=== PATIENT | male | born 1960 | race Caucasian/White ===

== ENCOUNTER → 2016-12-31 | Outpatient (CLI) | payer BC ==
[2016-12-31 07:22] LABS: CH 30.4; CHCM 34.1; HCT 49.1 % (39.0-53.0); HDW 2.55; HGB 16.2 gm/dL (13.0-17.5); MCH 29.6 pg (25.0-35.0); MCV 89.5 fL (80.0-100.0); Mean Platelet Volume 6.6; RBC 5.49 m/uL (4.30-5.90); RDW 13.1 % (11.5-15.5); WBC 6.1 k/uL (3.8-10.6)
[2016-12-31 07:27] LABS: INR 2.7 (<1.1); Prothrombin Time 25.9 sec (9.0-12.0)
[2016-12-31 07:35] LABS: Anion Gap 10 mmol/L; Blood Urea Nitrogen 20 mg/dL (9-20); Carbon Dioxide 30 mmol/L (22-30); Chloride 103 mmol/L (98-107); Glucose 107 mg/dL (74-99); Non-African American GFR(MDRD) >60 (>60 ml/min/1.73 sqM); Potassium 4.2 mmol/L (3.5-5.1); Sodium 143 mmol/L (137-145)
== END ==
LOC: LABWHC1 06:56
PROVIDERS: ATTEND Internal Medicine
DX: I48.0 Paroxysmal atrial fibrillation (principal)
CPT/HCPCS: 36415; 80048; 85027; 85610

== ENCOUNTER 2017-01-06 11:13 | Emergency (ER) | payer BC ==
[2017-01-06] MEDS ORDERED: SODIUM CHLORIDE 0.9% 1,000 ML IV STA (11:32)
--- NOTE | 2017-01-06 12:03 | ED ---
General Adult HPI - General Chief complaint: Neuro Symptoms/Deficit Stated complaint: left arm numb Time Seen by Provider: 01/06/17 11:24 Source: patient, RN notes reviewed, old records reviewed Mode of arrival: wheelchair Limitations: no limitations - History of Present Illness Initial comments: This is a 56-year-old male here for evaluation. The patient was here for evaluation of neurological symptoms. Patient has recent ablation history of A. fib, still on Coumadin. Patient still taking Coumadin as directed. Patient had Cardiac ablation within the last week. Told to ER symptoms of dizziness persists. Patient having left arm numbness and tingling which has resolved, but still having mild numbness and tingling in leftbody and leg. No trauma. - Related Data Home Medications Medication Instructions Recorded Confirmed Krill Oil 500 mg PO HS 01/06/17 01/06/17 Multivitamins, Thera [Multivitamin 1 tab PO HS 01/06/17 01/06/17 (formulary)] Omeprazole [PriLOSEC] 20 mg PO BID 01/06/17 01/06/17 Warfarin Sodium [Coumadin] 5 mg PO SUTUTH 01/06/17 01/06/17 Warfarin Sodium [Coumadin] 7.5 mg PO MOWEFRSA 01/06/17 01/06/17 Allergies Allergy/AdvReac Type Severity Reaction Status Date / Time No Known Allergies Allergy Verified 01/06/17 12:40 Review of Systems ROS Statement: Those systems with pertinent positive or pertinent negative responses have been documented in the HPI. ROS Other: All systems not noted in ROS Statement are negative. Past Medical History Past Medical History: Atrial Fibrillation, Atrial Flutter, Hyperlipidemia, Hypertension History of Any Multi-Drug Resistant Organisms: None Reported Past Surgical History: Cardiac Ablation Additional Past Surgical History / Comment(s): vasectomy Past Psychological History: No Psychological Hx Reported Smoking Status: Never smoker Past Alcohol Use History: None Reported Past Drug Use History: None Reported General Exam - General Exam Comments Initial Comments: NIH of 0 Limitations: no limitations General appearance: alert, in no apparent distress Head exam: Present: atraumatic, normocephalic, normal inspection Eye exam: Present: normal appearance, PERRL, EOMI. Absent: scleral icterus, conjunctival injection, periorbital swelling ENT exam: Present: normal exam, mucous membranes moist Neck exam: Present: normal inspection. Absent: tenderness, meningismus, lymphadenopathy Respiratory exam: Present: normal lung sounds bilaterally. Absent: respiratory distress, wheezes, rales, rhonchi, stridor Cardiovascular Exam: Present: regular rate, normal rhythm, normal heart sounds. Absent: systolic murmur, diastolic murmur, rubs, gallop, clicks GI/Abdominal exam: Present: soft, normal bowel sounds. Absent: distended, tenderness, guarding, rebound, rigid Extremities exam: Present: normal inspection, full ROM, normal capillary refill. Absent: tenderness, pedal edema, joint swelling, calf tenderness Back exam: Present: normal inspection Neurological exam: Present: alert, oriented X3, CN II-XII intact Psychiatric exam: Present: normal affect, normal mood Skin exam: Present: warm, dry, intact, normal color. 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 Symptoms of numbness and paresthesias and arm have went away, patient does have some tingling in his left knee and left side of his face, states maybe mildly anxious. No high blood pressure and questionable diabetes, does have history of A. fib with recent ablation, patient's subtherapeutic INR. Spoke with patient's ablation, cardiac surgery and patient will be discharged home - Lab Data Result diagrams: 01/06/17 12:00 01/06/17 12:00 Lab Results 01/06/17 01/06/17 01/06/17 Range/Units 12:00 12:00 12:00 WBC 7.8 (3.8-10.6) k/uL RBC 4.81 (4.30-5.90) m/uL Hgb 14.5 (13.0-17.5) gm/dL Hct 42.1 (39.0-53.0) % MCV 87.5 (80.0-100.0) fL MCH 30.0 (25.0-35.0) pg MCHC 34.3 (31.0-37.0) g/dL RDW 12.8 (11.5-15.5) % Plt Count 212 (150-450) k/uL Neutrophils % 75 % Lymphocytes % 14 % Monocytes % 7 % Eosinophils % 1 % Basophils % 0 % Neutrophils # 5.9 (1.3-7.7) k/uL Lymphocytes # 1.1 (1.0-4.8) k/uL Monocytes # 0.6 (0-1.0) k/uL Eosinophils # 0.1 (0-0.7) k/uL Basophils # 0.0 (0-0.2) k/uL PT (9.0-12.0) sec INR (<1.1) APTT (22.0-30.0) sec Sodium 139 (137-145) mmol/L Potassium 4.1 (3.5-5.1) mmol/L Chloride 100 (98-107) mmol/L Carbon Dioxide 30 (22-30) mmol/L Anion Gap 9 mmol/L BUN 20 (9-20) mg/dL Creatinine 0.85 (0.66-1.25) mg/dL Est GFR (MDRD) Af Amer >60 (>60 ml/min/1.73 sqM) Est GFR (MDRD) Non-Af >60 (>60 ml/min/1.73 sqM) Glucose 145 H (74-99) mg/dL Calcium 9.3 (8.4-10.2) mg/dL Total Bilirubin 1.1 (0.2-1.3) mg/dL AST 64 H (17-59) U/L ALT 101 H (21-72) U/L Alkaline Phosphatase 90 (38-126) U/L Total Creatine Kinase 168 (55-170) U/L CK-MB (CK-2) 0.8 (0.0-2.4) ng/mL CK-MB (CK-2) Rel Index 0.5 Troponin I 0.244 H* (0.000-0.034) ng/mL Total Protein 7.6 (6.3-8.2) g/dL Albumin 4.2 (3.5-5.0) g/dL 01/06/17 Range/Units 12:00 WBC (3.8-10.6) k/uL RBC (4.30-5.90) m/uL Hgb (13.0-17.5) gm/dL Hct (39.0-53.0) % MCV (80.0-100.0) fL MCH (25.0-35.0) pg MCHC (31.0-37.0) g/dL RDW (11.5-15.5) % Plt Count (150-450) k/uL Neutrophils % % Lymphocytes % % Monocytes % % Eosinophils % % Basophils % % Neutrophils # (1.3-7.7) k/uL Lymphocytes # (1.0-4.8) k/uL Monocytes # (0-1.0) k/uL Eosinophils # (0-0.7) k/uL Basophils # (0-0.2) k/uL PT 12.6 H (9.0-12.0) sec INR 1.3 (<1.1) APTT 24.1 (22.0-30.0) sec Sodium (137-145) mmol/L Potassium (3.5-5.1) mmol/L Chloride (98-107) mmol/L Carbon Dioxide (22-30) mmol/L Anion Gap mmol/L BUN (9-20) mg/dL Creatinine (0.66-1.25) mg/dL Est GFR (MDRD) Af Amer (>60 ml/min/1.73 sqM) Est GFR (MDRD) Non-Af (>60 ml/min/1.73 sqM) Glucose (74-99) mg/dL Calcium (8.4-10.2) mg/dL Total Bilirubin (0.2-1.3) mg/dL AST (17-59) U/L ALT (21-72) U/L Alkaline Phosphatase (38-126) U/L Total Creatine Kinase (55-170) U/L CK-MB (CK-2) (0.0-2.4) ng/mL CK-MB (CK-2) Rel Index Troponin I (0.000-0.034) ng/mL Total Protein (6.3-8.2) g/dL Albumin (3.5-5.0) g/dL - Radiology Data Radiology results: report reviewed (CT brain is negative for acute disease), image reviewed Disposition Clinical Impression: Arm paresthesia, right, Subtherapeutic anticoagulation Disposition: HOME SELF-CARE Condition: Good Referrals: Gelacio Chung Jr, [Primary Care Provider] - 1-2 days
[2017-01-06 12:14] LABS: Basophils % (A) 0 %; CH 30.3; CHCM 34.8; Eosinophils # (A) 0.1 k/uL (0-0.7); Eosinophils % (A) 1 %; HCT 42.1 % (39.0-53.0); HDW 2.53; HGB 14.5 gm/dL (13.0-17.5); Luc # (Auto) 0.16; Luc % (Auto) 2; Lymphocytes # (A) 1.1 k/uL (1.0-4.8); Lymphocytes % (A) 14 %; MCHC 34.3 g/dL (31.0-37.0); MCV 87.5 fL (80.0-100.0); Mean Platelet Volume 6.5; Monocytes # (A) 0.6 k/uL (0-1.0); Monocytes % (A) 7 %; Neutrophils # (A) 5.9 k/uL (1.3-7.7); Neutrophils % (A) 75 %; RBC 4.81 m/uL (4.30-5.90); RDW 12.8 % (11.5-15.5); WBC 7.8 k/uL (3.8-10.6); WBC (Perox) 7.87
[2017-01-06 12:25] LABS: ALT 101 U/L (21-72); AST 64 U/L (17-59); Alkaline Phosphatase 90 U/L (38-126); Anion Gap 9 mmol/L; Blood Urea Nitrogen 20 mg/dL (9-20); Calcium 9.3 mg/dL (8.4-10.2); Carbon Dioxide 30 mmol/L (22-30); Chloride 100 mmol/L (98-107); Glucose 145 mg/dL (74-99); INR 1.3 (<1.1); Non-African American GFR(MDRD) >60 (>60 ml/min/1.73 sqM); Partial Thromboplastin Time 24.1 sec (22.0-30.0); Potassium 4.1 mmol/L (3.5-5.1); Prothrombin Time 12.6 sec (9.0-12.0); Sodium 139 mmol/L (137-145); Total Bilirubin 1.1 mg/dL (0.2-1.3); Total Protein 7.6 g/dL (6.3-8.2)
--- NOTE | 2017-01-06 12:41 | CT ---
EXAMINATION TYPE: CT brain wo con DATE OF EXAM: 01/06/2017 12:33 PM COMPARISON: NONE HISTORY: left arm numbness post cardiac ablation CT DLP: 1072.[address] of the brain was performed. The ventricles, basal cisterns and sulci overlying the cerebral convexities demonstrate mild enlargem ent. There is no evidence for intracranial hemorrhage or sulcal effacement. There is decreased attenuation about the periventricular white matter and deep white matter of both c erebral hemispheres, compatible with chronic small vessel ischemia. Differential diagnosis does inclu de demyelination. No mass effects are seen.No midline shift. Osseous calvarium is intact. If symptoms persist consider MRI. IMPRESSION: 1. Age related atrophic and chronic small vessel ischemic change without acute intracranial process s een at this time.
[2017-01-06 12:46] LABS: Creatine Kinase MB 0.8 ng/mL (0.0-2.4)
[2017-01-06 12:50] LABS: Troponin I 0.244 ng/mL (0.000-0.034)
[2017-01-06 13:26] VITALS: RESP 16
[2017-01-06] MEDS ORDERED: ENOXAPARIN 80 MG/0.8 ML SYRINGE SQ STA (14:04)
[2017-01-06 14:33] VITALS: BP 132/87; PULSE 64; TEMP 97.8
== END 2017-01-06 14:31 | disposition home or self-care (01) ==
LOC: EC 11:13
DX: R20.2 Paresthesia of skin (principal); R79.1 Abnormal coagulation profile; I48.91 Unspecified atrial fibrillation; Z79.01 Long term (current) use of anticoagulants; Z79.899 Other long term (current) drug therapy
CPT/HCPCS: 99285; 96372; 96360; 96361; 36415; 93005; 80053; 82550; 82553; 84484; 85025; 85610; 85730; 70450; J1650

== ENCOUNTER → 2017-10-08 | Outpatient (CLI) | payer BC ==
--- NOTE | 2017-10-08 16:50 | XR ---
EXAMINATION TYPE: XR shoulder complete RT DATE OF EXAM: 10/08/2017 COMPARISON: NONE HISTORY: Chronic pain TECHNIQUE: 3 views FINDINGS: I see no fracture nor dislocation. Joint spaces are normal. There are no pathologic calcifi cations. IMPRESSION: Negative right shoulder exam
== END | disposition home or self-care (01) ==
LOC: RADXRMAIN 16:22
PROVIDERS: ATTEND Family Medicine
DX: M25.511 Pain in right shoulder (principal)

== ENCOUNTER → 2019-03-22 | Outpatient (CLI) | payer BC ==
--- NOTE | 2019-03-22 20:59 | XR ---
EXAMINATION TYPE: XR lumbosacral spine min 4V DATE OF EXAM: 03/22/2019 COMPARISON: NONE HISTORY: 58-year-old male with low back pain TECHNIQUE: 5 views FINDINGS: Leftward truncal shift. Facet arthropathy lower lumbar spine. 5 lumbar type vertebral jef s. No pars interarticularis defect. Mild disc interspace narrowing L5-S1. Vertebral body heights are preserved. IMPRESSION: Leftward truncal shift could be positional or due to muscle spasm. Facet arthropathy lower lumbar spi ne and mild degenerative disc disease L5-S1.
== END | disposition home or self-care (01) ==
LOC: RADXRMAIN 11:36
PROVIDERS: ATTEND Nurse Practitioner Family
DX: M51.16 Intervertebral disc disorders with radiculopathy, lumbar region (principal); M53.3 Sacrococcygeal disorders, not elsewhere classified; M46.97 Unspecified inflammatory spondylopathy, lumbosacral region
CPT/HCPCS: 72110

== ENCOUNTER → 2019-04-23 | Outpatient (CLI) | payer BC ==
--- NOTE | 2019-04-24 20:42 | MR ---
EXAMINATION TYPE: MR lumbar spine wo con DATE OF EXAM: 04/23/2019 COMPARISON: Lumbosacral x-ray March 22, 2019 HISTORY: Low back pain through left side into left lower extremity since March 11, 2019 per patient. TECHNIQUE: Multiplanar, multisequence imaging of the lumbar spine is performed without IV contrast. FINDINGS: Sagittal images of the lumbar spine show vertebral body heights and alignment to appear sat isfactory. Multilevel disc desiccation is seen but the space heights are maintained. And no large pos terior disc herniation seen on sagittal images The conus medullaris is normal in position and signal ending at T12-L1 disc space level. Mild anterior spurring with heterogeneous Modic type II endplate c hanges anteriorly in the lower lumbar spine. Axial images show the T12-L1 and L1-L2 levels to appear within normal limits. Axial images at the L2-L3 level show mild broad disc bulge and mild facet degenerative changes and li gamentum flavum hypertrophy causing mild effacement anterior and posterior lateral thecal sac on axia l image 18. Axial images at the L3-L4 level mild facet degenerative changes bilaterally. Axial images at the L4-L5 level show mild to moderate facet degenerative changes bilaterally with mil [id number] broad disc bulge minimally effacing the anterior thecal sac. Bilateral neural foramina are patent. Axial images at L5-S1 level show mild facet degenerative changes but the spinal canal is preserved. B ilateral neural foramina are patent. No suspicious incidental retroperitoneal findings are seen. IMPRESSION: Multilevel degenerative changes mid to lower lumbar spine as detailed above. No large foc al disc herniation seen to account for patient's left-sided radiculopathy type symptoms however.
== END | disposition home or self-care (01) ==
LOC: RADMRIMAIN 14:26
PROVIDERS: ATTEND Family Medicine
DX: M47.816 Spondylosis without myelopathy or radiculopathy, lumbar region (principal); M47.817 Spondylosis without myelopathy or radiculopathy, lumbosacral region
CPT/HCPCS: 72148

== ENCOUNTER → 2019-05-02 | Outpatient (CLI) | payer BC ==
--- NOTE | 2019-05-03 09:31 | XR ---
EXAMINATION TYPE: XR chest 2V DATE OF EXAM: 05/02/2019 COMPARISON: NONE HISTORY: Pneumonia TECHNIQUE: Frontal and lateral views of the chest are obtained. FINDINGS: Superior and lateral right upper lobe hazy consolidation extending to the pleural surface. Otherwise lungs are clear. No pleural effusion or pneumothorax. Cardiac silhouette and pulmonary vas culature are within normal limits. Osseous structures are grossly intact. IMPRESSION: Right upper lobe pneumonia. Follow-up until resolution.
== END | disposition home or self-care (01) ==
LOC: RADXRMAIN 16:04
PROVIDERS: ATTEND Family Medicine
DX: J18.1 Lobar pneumonia, unspecified organism (principal)
CPT/HCPCS: 71046

== ENCOUNTER 2019-05-04 11:02 | Emergency (ER) | payer BC ==
[2019-05-04 11:08] VITALS: RESP 18
[2019-05-04] MEDS ORDERED: SODIUM CHLORIDE 0.9% 1,000 ML IV STA (11:30)
--- NOTE | 2019-05-04 11:35 | ED ---
General Adult HPI - General Chief complaint: Neuro Symptoms/Deficit Stated complaint: Paresthesias Time Seen by Provider: 05/04/19 11:13 Source: patient, family, RN notes reviewed Mode of arrival: ambulatory Limitations: no limitations - History of Present Illness Initial comments: Patient is a pleasant 58-year-old male presenting to the emergency Department with complaints of paresthesia. Patient did have some right leg paresthesias several days ago however he 2 beats this to his sciatica. Patient states this has resolved. Patient has had right arm paresthesias for the past couple of days. This has been somewhat waxing and waning. Patient denies any weakness or heaviness. No loss of sensation. Patient was recently diagnosed with pneumonia less than 1 week ago and started on antibiotics. Patient does have some mild paresthesias of his right face as well. No facial weakness. No speech from this. No confusion. Patient states he did have history of left arm paresthesias several years ago following a procedure. - Related Data Home Medications Medication Instructions Recorded Confirmed Metoprolol Tartrate [Lopressor] 12.5 mg PO BID 05/04/19 05/04/19 Previous Rx's Medication Instructions Recorded Levofloxacin [Levaquin] 500 mg PO DAILY #9 tab 05/04/19 Allergies Allergy/AdvReac Type Severity Reaction Status Date / Time No Known Allergies Allergy Verified 05/04/19 12:01 Review of Systems ROS Statement: Those systems with pertinent positive or pertinent negative responses have been documented in the HPI. ROS Other: All systems not noted in ROS Statement are negative. Constitutional: Denies: fever Eyes: Denies: eye pain ENT: Denies: ear pain Respiratory: Denies: cough Cardiovascular: Denies: chest pain Endocrine: Denies: fatigue Gastrointestinal: Denies: abdominal pain Genitourinary: Denies: dysuria Musculoskeletal: Denies: back pain Skin: Denies: rash Neurological: Reports: paresthesias. Denies: headache, weakness, confusion, abnormal gait Past Medical History Past Medical History: Atrial Fibrillation, Atrial Flutter, Hyperlipidemia, Hypertension Additional Past Medical History / Comment(s): sciatica pneumonia History of Any Multi-Drug Resistant Organisms: None Reported Past Surgical History: Cardiac Ablation Additional Past Surgical History / Comment(s): vasectomy Past Psychological History: No Psychological Hx Reported Smoking Status: Never smoker Past Alcohol Use History: None Reported Past Drug Use History: None Reported General Exam Limitations: no limitations General appearance: alert, in no apparent distress Head exam: Present: atraumatic Eye exam: Present: normal appearance, PERRL, EOMI. Absent: nystagmus ENT exam: Present: normal oropharynx Neck exam: Present: normal inspection Respiratory exam: Present: normal lung sounds bilaterally Cardiovascular Exam: Present: regular rate, normal rhythm Expanded Peripheral pulses: 2+: Radial (R), Radial (L), Dorsalis Pedis (R), Dorsalis Pedis (L) GI/Abdominal exam: Present: soft. Absent: tenderness Extremities exam: Present: normal inspection Neurological exam: Present: oriented X3, CN II-XII intact. Absent: motor sensory deficit Expanded Neurological exam: Present: protecting the airway Patient oriented to: Present: person, place, time Speech: Present: fluid speech Cranial nerves: EOM's Intact: Normal, Facial Sensation: Normal Cerebellar function: Finger to Nose: Normal Sensory exam: Upper Extremity Light Touch: Normal, Lower Extremity Light Touch: Normal Motor strength exam: RUE: 5, LUE: 5, RLE: 5, LLE: 5 Eye Response: (4) open spontaneously Motor Response: (6) obeys commands Verbal Response: (5) oriented Psychiatric exam: Present: normal affect, normal mood Skin exam: Present: normal color Course Vital Signs 05/04/19 05/04/19 11:04 13:23 Temperature 97.7 F 98.1 F Pulse Rate 97 87 Respiratory 18 18 Rate Blood Pressure 181/92 134/85 O2 Sat by Pulse 99 100 Oximetry EKG Findings - EKG Comments: EKG Findings:: Normal sinus rhythm 95. MN 180. QRS 84. QT 338. QTC 424. Normal axis. Normal QRS. No acute ST change. Medical Decision Making - Medical Decision Making Case was discussed in detail with Dr. Oliva. He is made aware of concern regarding possible expanding pneumonia and possible neoplastic process. He r ecommends changing antibiotics and will follow-up tomorrow with patient. Patient reevaluated and resting comfortably in bed. Patient does not have any clinical or objective signs of stroke. Patient and family are made aware of results including concern for possible expanding pneumonia and possible neoplastic process. They're both made aware of need for follow-up and continued follow-up with repeat chest x-ray and possible further evaluation with pulmonary or oncology or bronchoscopy. - Lab Data Result diagrams: 05/04/19 11:37 05/04/19 11:39 Lab Results 05/04/19 05/04/19 05/04/19 Range/Units 11:37 11:39 11:39 WBC 7.9 (3.8-10.6) k/uL RBC 4.63 (4.30-5.90) m/uL Hgb 13.1 (13.0-17.5) gm/dL Hct 40.4 (39.0-53.0) % MCV 87.3 (80.0-100.0) fL MCH 28.4 (25.0-35.0) pg MCHC 32.5 (31.0-37.0) g/dL RDW 12.3 (11.5-15.5) % Plt Count 356 (150-450) k/uL Neutrophils % 76 % Lymphocytes % 14 % Monocytes % 6 % Eosinophils % 2 % Basophils % 0 % Neutrophils # 6.0 (1.3-7.7) k/uL Lymphocytes # 1.1 (1.0-4.8) k/uL Monocytes # 0.5 (0-1.0) k/uL Eosinophils # 0.2 (0-0.7) k/uL Basophils # 0.0 (0-0.2) k/uL PT 10.4 (9.0-12.0) sec INR 1.0 (<1.2) APTT 25.2 (22.0-30.0) sec Sodium 138 (137-145) mmol/L Potassium 3.9 (3.5-5.1) mmol/L Chloride 100 (98-107) mmol/L Carbon Dioxide 27 (22-30) mmol/L Anion Gap 11 mmol/L BUN 21 H (9-20) mg/dL Creatinine 0.85 (0.66-1.25) mg/dL Est GFR (CKD-EPI)AfAm >90 (>60 ml/min/1.73 sqM) Est GFR (CKD-EPI)NonAf >90 (>60 ml/min/1.73 sqM) Glucose 144 H (74-99) mg/dL Calcium 9.1 (8.4-10.2) mg/dL Total Bilirubin 0.6 (0.2-1.3) mg/dL AST 50 (17-59) U/L ALT 41 (21-72) U/L Alkaline Phosphatase 174 H (38-126) U/L Creatine Kinase 479 H (55-170) U/L Troponin I (0.000-0.034) ng/mL Total Protein 7.3 (6.3-8.2) g/dL Albumin 3.9 (3.5-5.0) g/dL 05/04/19 Range/Units 11:39 WBC (3.8-10.6) k/uL RBC (4.30-5.90) m/uL Hgb (13.0-17.5) gm/dL Hct (39.0-53.0) % MCV (80.0-100.0) fL MCH (25.0-35.0) pg MCHC (31.0-37.0) g/dL RDW (11.5-15.5) % Plt Count (150-450) k/uL Neutrophils % % Lymphocytes % % Monocytes % % Eosinophils % % Basophils % % Neutrophils # (1.3-7.7) k/uL Lymphocytes # (1.0-4.8) k/uL Monocytes # (0-1.0) k/uL Eosinophils # (0-0.7) k/uL Basophils # (0-0.2) k/uL PT (9.0-12.0) sec INR (<1.2) APTT (22.0-30.0) sec Sodium (137-145) mmol/L Potassium (3.5-5.1) mmol/L Chloride (98-107) mmol/L Carbon Dioxide (22-30) mmol/L Anion Gap mmol/L BUN (9-20) mg/dL Creatinine (0.66-1.25) mg/dL Est GFR (CKD-EPI)AfAm (>60 ml/min/1.73 sqM) Est GFR (CKD-EPI)NonAf (>60 ml/min/1.73 sqM) Glucose (74-99) mg/dL Calcium (8.4-10.2) mg/dL Total Bilirubin (0.2-1.3) mg/dL AST (17-59) U/L ALT (21-72) U/L Alkaline Phosphatase (38-126) U/L Creatine Kinase (55-170) U/L Troponin I <0.012 (0.000-0.034) ng/mL Total Protein (6.3-8.2) g/dL Albumin (3.5-5.0) g/dL - Radiology Data Radiology results: report reviewed (Computed tomography scan of the brain shows no acute process. CT angiogram of the head and neck shows no large vessel occlusion or dissection or aneurysm. Cavitary right upper lobe lesion extension to the pleural surface and right upper lobe pneumonitis. Differential includes neoplastic process versus pneumonia.), image reviewed (Chest x-ray shows increasing right upper lobe opacity.) Disposition Clinical Impression: Paresthesia, Opacity of lung on imaging study Disposition: HOME SELF-CARE Condition: Stable Instructions (If sedation given, give patient instructions): Pneumonia (ED), Paresthesia (ED) Additional Instructions: Please follow-up tomorrow with Dr. Oliva. He will need further evaluation including repeat x-rays and possible further specialist evaluation. Bronchoscopy may be necessary in the future as well. Return for fevers, difficulty breathing, increased pain, weakness, worsening or change in symptoms or other concerns. Prescription [facility] been [facility] to [facility]. Prescriptions: Levofloxacin [Levaquin] 500 mg PO DAILY #9 tab Is patient prescribed a controlled substance at d/c from ED?: No Referrals: Guevara Oliva MD [Primary Care Provider] - 1-2 days Time of Disposition: 15:14
[2019-05-04 11:50] LABS: Basophils % (A) 0 %; Eosinophils # (A) 0.2 k/uL (0-0.7); Eosinophils % (A) 2 %; HCT 40.4 % (39.0-53.0); HGB 13.1 gm/dL (13.0-17.5); Lymphocytes # (A) 1.1 k/uL (1.0-4.8); Lymphocytes % (A) 14 %; MCH 28.4 pg (25.0-35.0); MCHC 32.5 g/dL (31.0-37.0); MCV 87.3 fL (80.0-100.0); Mean Platelet Volume 6.5; Monocytes # (A) 0.5 k/uL (0-1.0); Monocytes % (A) 6 %; Neutrophils % (A) 76 %; Platelet Count 356 k/uL (150-450); RBC 4.63 m/uL (4.30-5.90); RDW 12.3 % (11.5-15.5); WBC 7.9 k/uL (3.8-10.6)
[2019-05-04 12:09] LABS: Partial Thromboplastin Time 25.2 sec (22.0-30.0); Prothrombin Time 10.4 sec (9.0-12.0)
--- NOTE | 2019-05-04 12:11 | CT ---
EXAMINATION TYPE: CT brain wo con DATE OF EXAM: 05/04/2019 COMPARISON: 01/06/2017 HISTORY: Rt sided numbness CT DLP: 1049 mGycm Automated exposure control for dose reduction was used. FINDINGS: No acute intracranial hemorrhage. Extra-axial spaces are clear. Vascular mineralization in the bilate ral basal ganglia. No hydrocephalus. Coffman-white matter differentiation is preserved. Basal cisterns a re symmetric. Visualized paranasal sinuses and mastoid air cells are clear. Skull base is intact. IMPRESSION: NO ACUTE INTRACRANIAL PROCESS. IF FOCAL NEUROLOGIC SYMPTOMS PERSIST, MRI OF THE BRAIN WITHOUT CONTRAS T MAY BE PERFORMED.
[2019-05-04 12:13] LABS: ALT 41 U/L (21-72); AST 50 U/L (17-59); African American GFR (CKD) >90 (>60 ml/min/1.73 sqM); Albumin 3.9 g/dL (3.5-5.0); Alkaline Phosphatase 174 U/L (38-126); Anion Gap 11 mmol/L; Blood Urea Nitrogen 21 mg/dL (9-20); Calcium 9.1 mg/dL (8.4-10.2); Carbon Dioxide 27 mmol/L (22-30); Chloride 100 mmol/L (98-107); Creatine Kinase 479 U/L (55-170); Glucose 144 mg/dL (74-99); Potassium 3.9 mmol/L (3.5-5.1); Sodium 138 mmol/L (137-145); Total Bilirubin 0.6 mg/dL (0.2-1.3); Total Protein 7.3 g/dL (6.3-8.2)
--- NOTE | 2019-05-04 12:28 | XR ---
EXAMINATION TYPE: XR chest 2V DATE OF EXAM: 05/04/2019 COMPARISON: 05/02/2019 HISTORY: Recent pneumonia. Altered mental status. TECHNIQUE: Frontal and lateral views of the chest are obtained. FINDINGS: There is increasing confluence of the right upper lobe pneumonia. Remainder the lungs are clear with pulmonary hyperinflation suggesting underlying COPD. Cardiomediastinal silhouette is withi n normal limits. No acute osseous pathology seen. No pneumothorax or pleural effusion. IMPRESSION: Increasing right upper lobe consolidation suspicious for pneumonia. Follow-up to [facility] ion is recommended to exclude underlying mass.
--- NOTE | 2019-05-04 12:45 | CT ---
EXAMINATION TYPE: CT angio head neck DATE OF EXAM: 05/04/2019 HISTORY: Rt sided numbness COMPARISON: None CT DLP: 399.5 mGycm. Automated Exposure Control for Dose Reduction was Utilized. TECHNIQUE: CTA scan of the neck is performed with IV Contrast, patient injected with 50 mL of Isovue 370, axial images are obtained, coronal and sagittal reformatted images are reviewed. Three-D recons tructed images are created on an independent workstation and reviewed. FINDINGS: Carotid/Vascular Structures: Normal three-vessel takeoff. Common carotid arteries are patent. Interna l carotid arteries are patent. External carotid arteries are patent. Bilateral vertebral arteries are patent. Basilar artery is patent. Anterior, middle and posterior cerebral arteries are patent. No en hancing lesion in the brain. Other: Right upper lobe cavitary lesion adjacent to the right pleural surface measuring up to 2.6 cm with surrounding groundglass attenuation in the right upper lobe. Adjacent osseous structures appear within normal limits. Multilevel cervical spondylosis most severe at C5-6 and C6-7. IMPRESSION: No large vessel occlusion, dissection or aneurysm in the visualized carotid/vascular structures. Cavitary right upper lobe lesion with extension to the right pleural surface and right upper lobe pne umonitis. Differential for these findings include neoplastic process versus pneumonia. Correlation wi patient history and WBC is recommended.
[2019-05-04 13:24] VITALS: TEMP 98.1
[2019-05-04] MEDS ORDERED: LEVOFLOXACIN 750 MG TAB PO STA (15:15)
[2019-05-04 15:38] VITALS: BP 163/91; PULSE 80
== END 2019-05-04 15:37 | disposition home or self-care (01) ==
LOC: EC 11:02
DX: R20.2 Paresthesia of skin (principal); R91.8 Other nonspecific abnormal finding of lung field; I48.91 Unspecified atrial fibrillation; I10 Essential (primary) hypertension; Z79.899 Other long term (current) drug therapy; Z98.890 Other specified postprocedural states
CPT/HCPCS: 36415; 93005; 80053; 82550; 84484; 85025; 85610; 85730; 71046; 70496; 70450; 70498; 99284; 96360; 96361 ×3; Q9967

== ENCOUNTER → 2019-05-10 | Outpatient (CLI) | payer BC ==
--- NOTE | 2019-05-10 08:43 | XR ---
EXAMINATION TYPE: XR chest 2V DATE OF EXAM: 05/10/2019 COMPARISON: 05/04/2019 HISTORY: 58-year-old male J18.8 TECHNIQUE: PA and lateral views FINDINGS: The cardiomediastinal silhouette, aorta, and pulmonary vasculature are within normal limits. Improvin g aeration within the right upper lobe with residual irregular pleural parenchymal opacity at the ape x. Remainder of lungs are clear. No pleural effusion. IMPRESSION: Improving aeration right upper lobe but with residual irregular pleural parenchymal opacity. Findings suspected to represent resolving pneumonia. 4-6 week follow-up to reassess.
== END | disposition home or self-care (01) ==
LOC: RADXRMAIN 08:01
PROVIDERS: ATTEND Family Medicine
DX: J18.8 Other pneumonia, unspecified organism (principal)
CPT/HCPCS: 71046

== ENCOUNTER → 2019-05-25 | Outpatient (CLI) | payer BC ==
--- NOTE | 2019-05-25 16:42 | CT ---
EXAMINATION TYPE: CT chest w con DATE OF EXAM: 05/25/2019 COMPARISON: None, chest x-ray 05/10/2019 HISTORY: Abnormal findings on CXR. Hx of recent pneumonia. CT DLP: 226.5 mGycm, Automated exposure control for dose reduction was used. CONTRAST: Performed injected with 100 mL of Isovue 300. TECHNIQUE: Axial images were obtained at 5 mm thick sections. Reconstructed images are reviewed on [employer] computer in the coronal plane. FINDINGS: Portion of the thyroid visualized is normal. There is a spiculated mass measuring 2.1 cm in diameter in the posterior lateral right apex. This is tenting the pleural margin. There is a 1.0 cm pretracheal lymph node at the level of the madeline. The ascending aorta diameter at the level of the main pulmonary artery is 3.2 cm. The main pulmonary artery diameter at the bifurcat ion is 2.[address] sections are obtained through the upper abdomen. Abdomen is essentially unremarkable. IMPRESSIONS: 1. 2.1 cm spiculated mass posterior right upper lobe. Additional workup for neoplasm is recommended.
== END | disposition home or self-care (01) ==
LOC: RADCTMAIN 14:39
PROVIDERS: ATTEND Internal Medicine Critical Care Medicine
DX: R91.8 Other nonspecific abnormal finding of lung field (principal)
CPT/HCPCS: 71260; Q9967

== ENCOUNTER → 2019-06-03 | Outpatient (CLI) | payer BC ==
--- NOTE | 2019-06-05 17:05 | PE ---
EXAMINATION TYPE: PET CT fusion skull to thigh DATE OF EXAM: 06/03/2019 COMPARISON: Chest CT May 25, 2019 HISTORY: Right sided Lung mass, abnormal CT. TECHNIQUE: Following the intravenous administration of 13.20 mCi of F-18 FDG, whole body images are performed from the skull base to the midthigh. Images are reviewed on the computer in the coronal, a xial, and sagittal planes. Reconstructed rotating images are created on independent workstation and reviewed on the computer. A noncontrast CT is performed in conjunction with the PET scan. SCAN: Initial Scan FINDINGS: SKULL BASE AND NECK: No areas of suspicious hypermetabolic uptake. CHEST, MEDIASTINUM, AND HILAR REGION: Redemonstration of background mild underlying emphysematous laura nge with moderate biapical pleural/parenchymal scarring slightly more prominent in the right lung ape x. There is parenchymal scar like opacity extending laterally and inferiorly measuring approximately 2.0 x 1.0 cm current study image 88 which is ametabolic period no suspicious hypermetabolic uptake th roughout the thorax is identified. There is stable prominent pericarinal lymph node which is a metabo lic measuring 1.0 x 0.9 cm axial image 108. ABDOMEN AND PELVIS: No adrenal masses. No areas of suspicious hypermetabolic uptake. Normal excretion . OSSEOUS STRUCTURES: No areas of suspicious hypermetabolic uptake. OTHER CT: Enlarged prostate gland consistent with BPH bulging of the bladder base. Correlate clinical ly. Some facet arthropathy lower lumbar spine. Some disc space narrowing and spurring lower cervical spin e. IMPRESSION: No suspicious hypermetabolic uptake to suggest malignancy. Area of concern on CT favors p ostinflammatory scar. Consider follow-up CT in 6-12 months time to document stability.
== END | disposition home or self-care (01) ==
LOC: RADPETMAIN 16:18
PROVIDERS: ATTEND Nurse Practitioner Adult Health
DX: J98.4 Other disorders of lung (principal)
CPT/HCPCS: 78815; A9552

== ENCOUNTER → 2022-12-08 | Outpatient (CLI) | payer BC | END | disposition home or self-care (01) | LOC: LABWHC1 13:51 | PROVIDERS: ATTEND Urology | DX: R97.20 Elevated prostate specific antigen [PSA] (principal) | CPT/HCPCS: 36415; 84153 ==

== ENCOUNTER → 2022-12-30 | Outpatient (CLI) | payer BC ==
--- NOTE | 2023-01-01 20:29 | MR ---
EXAMINATION TYPE: MR Prostate wo/w con DATE OF EXAM: 12/30/2022 8:59 AM COMPARISON: Pet/CT 06/03/2019. CLINICAL INDICATION:Male, 62 years old with history of R97.20 ELEVATED PROSTATE SPECIFIC ANTIGEN TECHNIQUE: Multi-planar, multi-sequence imaging of the pelvis is performed prior to and following the uncomplicated administration of bolus intravenous gadolinium. CONTRAST: 8 Gadavist Interpretive Criteria: PI-RADS v2.1 SERUM PSA: * 6.9 on 12/26/2022 * 8.2 on 12/08/2022 SURGICAL PATHOLOGY: Benign biopsy 08/01/2014 FINDINGS: Prostatic dimensions: 5.6 x 5.4 x 4.3 cm. Ellipsoid Volume:83.92 mL (PSA density=0.10 ng/mL/mL) CENTRAL GLAND (Central and Transition Zones/CZ+TZ): Anterior right central gland involving the mid gland measuring 14 x 11 mm subtle diffusion restrictio n with associated higher DWI and associated low ADC signal. This also has lower T2 signal. PIRADS 4 PERIPHERAL ZONE (PZ): Bilateral linear, indistinct wedgelike areas of low ADC, and low T2 signal, No evidence of masslike a bnormality, or localized perfusional hypervascularity, to further suggest a focus of clinically signi ficant prostate cancer. (PI-RADS 2) SEMINAL VESICLES (SV): Symmetric and unremarkable. PERIPROSTATIC TISSUES: Unremarkable. LYMPH NODES: No enlarged pelvic lymph node. REMAINING PELVIS: Bladder wall is within normal limits given distention. No abnormal free or organized intrapelvic fluid collection. No pathologic bowel dilation or mural thickening. Fat-containing inguinal hernias. I by 2 OSSEOUS STRUCTURES: No suspicious osseous abnormality. IMPRESSION: 1. PI-RADS 4 lesion in the right central zone mid gland measuring up to 14 mm. 2. Substantial BPH, estimated gland volume 83.92 mL. 3. No suspicious osseous lesion. No lymphadenopathy. No evidence of prostate adenocarcinoma involving the periprostatic tissues.
== END | disposition home or self-care (01) ==
LOC: RADMRIMAIN 07:57
PROVIDERS: ATTEND Urology
DX: N40.0 Benign prostatic hyperplasia without lower urinary tract symptoms (principal); R97.20 Elevated prostate specific antigen [PSA]
CPT/HCPCS: 72197; A9585

== ENCOUNTER → 2023-02-04 | Outpatient (CLI) | payer BC ==
[2023-02-04 15:08] LABS: Basophils # (A) 0.02 X 10*3/uL (0.00-0.10); Basophils % (A) 0.3 %; Eosinophils # (A) 0.04 X 10*3/uL (0.04-0.35); Eosinophils % (A) 0.6 %; HGB 14.4 g/dL (13.0-17.0); Immature Grans, Automated 0.5 %; Lymphocytes # (A) 1.47 X 10*3/uL (0.90-5.00); Lymphocytes % (A) 22.6 %; MCHC 32.7 g/dL (32.0-37.0); MCV 88.5 fL (80.0-97.0); Mean Platelet Volume 9.4 fL (9.5-12.2); Monocytes # (A) 0.59 X 10*3/uL (0.20-1.00); Monocytes % (A) 9.1 %; NRBC Per 100 WBC 0 /100 WBCS (0.0-0.0); Neutrophils # (A) 4.35 X 10*3/uL (1.80-7.70); Neutrophils % (A) 66.9 %; Platelet Count 284 X 10*3/uL (140-440); RBC 4.97 X 10*6/uL (4.40-5.60); RDW 12.2 % (11.5-14.5)
[2023-02-04 15:44] LABS: African American GFR (CKD) 82.4 (60.0-200.0); Anion Gap 9.3 mmol/L (10.00-18.00); BUN/Creat Ratio 16.27 Ratio (12.00-20.00); Blood Urea Nitrogen 17.9 mg/dL (9.0-27.0); Calcium 9.7 mg/dL (8.7-10.3); Carbon Dioxide 29.7 mmol/L (20.0-27.5); Non-African American GFR(CKD) 71.1 (60.0-200.0)
== END | disposition home or self-care (01) ==
LOC: LABPAT 11:07
PROVIDERS: ATTEND Urology
DX: Z01.812 Encounter for preprocedural laboratory examination (principal); R97.20 Elevated prostate specific antigen [PSA]
CPT/HCPCS: 36415; 80048; 85025

== ENCOUNTER 2023-02-12 13:01 | Day surgery (SDC) | payer BC ==
--- NOTE | 2023-02-11 22:20 | P.GSHP ---
History of Present Illness H&P Date: 02/11/23 Chief Complaint: Elevated PSA The patient is a 62-year-old white male with recent PSA levels of 6.9 and 8.2. His father had prostate cancer. The patient underwent prostate biopsies in July 2014, showing no evidence of malignancy. Recent prostate MRI shows a prostate volume of 84 mL, with a PI-RADS 4 lesion within the right central zone. He now comes for MRI ultrasound fusion biopsy. - Cardiovascular Cardiovascular: Reports high blood pressure - Genitourinary (Male) Genitourinary: Reports urinary frequency Past Medical History Past Medical History: Atrial Fibrillation, Atrial Flutter, Hyperlipidemia, Hypertension, Prostate Disorder Additional Past Medical History / Comment(s): pneumonia 2019,( saw lung specialist) enlarged prostate, 2013 bx( PSA increased) negative. PSA numbers up and down. had MRI ? control cholesterol with diet and exercise. History of Any Multi-Drug Resistant Organisms: None Reported Past Surgical History: Cardiac Ablation Additional Past Surgical History / Comment(s): vasectomy, bx prostate, colonoscopy Past Anesthesia/Blood Transfusion Reactions: No Reported Reaction Smoking Status: Never smoker - Past Family History Mother Family Medical History: AFIB Additional Family Medical History / Comment(s): ablation Father Family Medical History: Cancer Additional Family Medical History / Comment(s): prostate Medications and Allergies Home Medications Medication Instructions Recorded Confirmed Type Metoprolol Tartrate [Lopressor] 12.5 mg PO BID 05/04/19 02/10/23 History Allergies Allergy/AdvReac Type Severity Reaction Status Date / Time No Known Allergies Allergy Verified 02/10/23 11:34 Surgical - Exam - General well developed, well nourished, no distress - Respiratory normal respiratory effort - Abdomen Abdomen: soft, non tender, no guarding, no rigid, no rebound - Genitourinary normal penis with no external lesions, testicles non-tender - Rectum Rectum: normal sphincter tone, no masses, other (Prostate moderately enlarged with smooth) - Psychiatric oriented to time, oriented to person, oriented to place, speech is normal, memory intact Assessment and Plan (1) Elevated prostate specific antigen [PSA] Status: Acute Code(s): R97.20 - ELEVATED PROSTATE SPECIFIC ANTIGEN [PSA] SNOMED Code(s): 162706276 Plan: MRI ultrasound fusion biopsy of the prostate. The procedure has been reviewed in detail with the patient. He has been made aware of potential risks, which include anesthesia, bleeding, and infection.
[~2023-02-12 13:01] MED LIST: DEXAMETHASONE SOD PHOSPHATE 4 MG/ML 1 ML VIAL IV ONE; GENTAMICIN 120 MG in SODIUM CHLORIDE 0.9% 100 ML IVPB PRN; HYDROmorphone 0.5 MG/0.5 ML SYRINGE IVP PRN; LACTATED RINGERS 1,000 ML IV SCH; LIDOCAINE 1% (10MG/ML) FOR IV START INTRADERMA PRN; MIDAZOLAM 2 MG/2 ML VIAL IV PRN; ONDANSETRON 4 MG/2 ML VIAL IVP ONE
[2023-02-12 14:24] VITALS: TEMP 98.3
[2023-02-12] MEDS ORDERED: fentaNYL (PF) 50 MCG/ML 2 ML AMP ONE (15:08)
[2023-02-12] MEDS ORDERED: PROPOFOL 10 MG/ML 20 ML VIAL IV ONE (15:08)
[2023-02-12] MEDS ORDERED: MIDAZOLAM 2 MG/2 ML VIAL ONE (15:08)
--- NOTE | 2023-02-12 15:36 | P.OP ---
Date of Procedure: 02/12/23 Preoperative Diagnosis: Elevated PSA Postoperative Diagnosis: Same Procedure(s) Performed: MRI US Fusion Biopsies of the Prostate Anesthesia: MAC Surgeon: Kashif Ferrera Estimated Blood Loss (ml): 5 IV fluids (ml): 100 Pathology: other (Prostate biopsies) Condition: stable Disposition: PACU Indications for Procedure: The patient is a 62-year-old white male with recent PSA levels of 6.9 and 8.2. His father had prostate cancer. The patient underwent prostate biopsies in July 2014, showing no evidence of malignancy. Recent prostate MRI shows a prostate volume of 84 mL, with a PI-RADS 4 lesion within the right central zone. He now comes for MRI ultrasound fusion biopsy. Operative Findings: Prostate volume 73 mL. 3 biopsies obtained from target lesion, 12 additional template biopsies obtained. Description of Procedure: The patient was taken to the operating room and placed in the left lateral decubitus position. The [employer] transrectal ultrasound probe was placed intrarectally. It was then placed within the stand of the [email or web address] MRI/TRUS Fusion for Prostate Biopsy system. The prostate was imaged in both the axial and sagittal planes, revealing a prostate volume of 73 mL. Using the Biopty gun, 3 biopsies were obtained from the target lesion (right mid anterior stroma). The remaining 12 biopsies of the peripheral zone were obtained utilizing a standard template. Once the procedure was completed, the ultrasound probe was removed. The patient tolerated the procedure well was taken to the recovery room stable condition.
[2023-02-12 15:58] VITALS: BP 121/61; PULSE 73; RESP 18
== END 2023-02-12 16:22 | disposition home or self-care (01) ==
LOC: OR 13:01
PROVIDERS: ATTEND Urology
DX: N41.0 Acute prostatitis (principal); N40.1 Benign prostatic hyperplasia with lower urinary tract symptoms; I48.91 Unspecified atrial fibrillation; E78.5 Hyperlipidemia, unspecified; I10 Essential (primary) hypertension; Z80.42 Family history of malignant neoplasm of prostate; Z79.899 Other long term (current) drug therapy
CPT/HCPCS: 55700; J2250; J1100; J0690; J2405; J3010; J1580; J2704; 88305

== ENCOUNTER → 2023-06-30 | Outpatient (CLI) | payer BC | END | disposition home or self-care (01) | LOC: LABWHC1 07:42 | PROVIDERS: ATTEND Urology | DX: R97.20 Elevated prostate specific antigen [PSA] (principal) | CPT/HCPCS: 36415; 84153 ==

== ENCOUNTER → 2024-01-20 | Outpatient (CLI) | payer BC | END | disposition home or self-care (01) | LOC: LABWHC1 08:41 | PROVIDERS: ATTEND Urology | DX: R97.20 Elevated prostate specific antigen [PSA] (principal) | CPT/HCPCS: 36415; 84153 ==

== ENCOUNTER → 2024-07-06 | Outpatient (CLI) | payer BC | END | disposition home or self-care (01) | LOC: LABWHC1 09:31 | PROVIDERS: ATTEND Urology | DX: R97.20 Elevated prostate specific antigen [PSA] (principal) | CPT/HCPCS: 36415; 84153 ==

== ENCOUNTER → 2025-01-19 | Outpatient (CLI) | payer BC | END | disposition home or self-care (01) | LOC: LABWHC1 09:18 | PROVIDERS: ATTEND Urology | DX: R97.20 Elevated prostate specific antigen [PSA] (principal) | CPT/HCPCS: 36415; 84153 ==